=== PATIENT | male | born 1995 | race African-American/Black ===

== ENCOUNTER 2020-06-27 14:23 | Emergency (ER) | payer OTHER ==
[~2020-06-27] VITALS: Ht 170.2 cm; Wt 95.8 kg
[2020-06-27] MEDS ORDERED: TRUV1TAB2 PO (14:34)
[2020-06-27 16:54] VITALS: BP 134/85
== END 2020-06-27 16:50 | disposition home or self-care (01) ==
LOC: M ED 14:23
DX: Z20.822 Contact with and (suspected) exposure to COVID-19 (principal); J45.909 Unspecified asthma, uncomplicated
CPT/HCPCS: 99283; U0003